=== PATIENT | female | born 1960 | race Hispanic/Latino ===

== ENCOUNTER 2016-12-29 10:00 | Day surgery (SDC) | payer OTHER ==
[~2016-12-29] VITALS: Ht 154.9 cm; Wt 68.0 kg
[~2016-12-29 10:00] MED LIST: IBUP800T28 PO; MAGN250T29 PO
[2016-12-29] MEDS ORDERED: Sodium Chloride LOK Flush 10 mL Syringe IV PRN (10:05)
[2016-12-29] MEDS ORDERED: fentaNYL-PF 50 mCg/mL 2 mL Inj IVPUSH PRN (10:05)
[2016-12-29 10:25] VITALS: BP 124/78; PULSE 69; RESP 16; O2SAT 96
[2016-12-29] MEDS ORDERED: MILK1CAP3 PO (10:31)
[2016-12-29] MEDS ORDERED: CYAN1TAB42 PO (10:31)
[2016-12-29] MEDS ORDERED: MULT400C3 PO (10:31)
[2016-12-29] MEDS ORDERED: BACL10TA PO (10:31)
[2016-12-29] MEDS ORDERED: BLAC160C PO (10:31)
[2016-12-29] MEDS ORDERED: CANNABIS PO (10:31)
[2016-12-29] MEDS: 0.9% Sodium Chloride 1,000 ML IV PRN ×2 (10:37→11:22)
--- NOTE | 2016-12-29 11:51 | PCM.ENDCOL ---
Colonoscopy Date of Service: Dec 29, 2016 Physician Juan Salinas MD Pre Procedure Diagnosis: Screening Post Procedure Dx & Findings: Polyps hemorrhoids Procedure Colonoscopy Prep adequate Withdrawal 15 minutes PROCEDURE IN DETAIL: After unremarkable rectal examination the colonoscope was inserted patient's anal canal was advanced to cecum. Landmarks were identified including the ileocecal valve and appendiceal orifice. Scope was withdrawn systematically. In the cecum, there was a 2 mm polyp which was removed completely using cold snare. In the transverse colon, there were three 2 mm polyps which were all resected completely using cold snare. In the sigmoid colon there was a 1 mm polyp was removed completely using cold forceps. In the rectum retroflexion was done which showed hemorrhoids. Anal canal was inspected carefully on the way out and hemorrhoids noted. The mucosa of the cecum, ascending, transverse, descending, sigmoid, rectal mucosa lined with whitish, pink, smooth, glistening, normal-appearing mucosa, normal fine branching, underlying vascularity, normal haustra. The patient tolerated procedure and was transported to observation area. Impression Polyp 5 status post complete removal Hemorrhoids Recommendation Repeat colonoscopy 5 years Presedation Assessment Risks and Benefits Informed consent was obtained from the patient after all risks and benefits including but not limited to drug reaction, infection, pain, bleeding, perforation, as well as alternatives were discussed. Patient monitoring Continuous pulse oximetry, cardiac monitoring, blood pressure monitoring, IV access, and oxygen at 2L per nasal cannula. Periprocedural Fentanyl: Fentanyl 125mcg Incrementally Midazolam: Midazolam 6mg Incrementally Complications There were no periprocedural complications identified. Post Procedure Plan Post Procedure Recommendations 1. Restrict activities today. 2. Resume normal activities in the morning. 3. Resume medications. 4. Patient informed of normal post procedure side effects as bloating, drowsiness, blood streaking in the stool. 5. average risk CRCS. If colon polyps come back as: -Hyperplastic- can repeat colonoscopy in 10 years -Tubular adenoma- repeat colonoscopy in 5 years -Tubulovillous/villous adenoma- repeat colonoscopy in 3 years -If any dysplasia- return to clinic as soon as possible 6. Please don't hesitate to call me with any questions. Juan Salinas MD Dec 29, 2016 11:51
[2016-12-29 11:53] VITALS: BP 103/70; PULSE 55; RESP 16; O2SAT 96
[2016-12-29 12:03] VITALS: BP 97/56; PULSE 56; RESP 16; O2SAT 98
[2016-12-29 12:15] VITALS: BP 98/70; PULSE 58; RESP 16; O2SAT 98
[2016-12-29 12:19] VITALS: BP 113/71; PULSE 62; RESP 14; O2SAT 100
--- NOTE | 2017-01-01 14:07 | PATH ---
SURGICAL PATHOLOGY Attending Physician:Juan Salinas M.D. CASE STATUS: Signed Out PATIENT NAME: HALI GRESHAM PID: [id number] : 1960 DATE COLLECTED:12/29/2016 20:29 SPECIMEN: 1: Colon, Biopsy 2: Colon, Biopsy 3: Colon, Biopsy CLINICAL HISTORY: POLYPS 1). CECAL POLYP X1 2). TRANSVERSE POLYP X3 3). SIGMOID POLYP X1 FINAL DIAGNOSIS: 1.CECAL POLYP: TUBULAR ADENOMA. 2.TRANSVERSE POLYPS: TUBULAR ADENOMAS, 2 OF 2 FRAGMENTS. MULTIPLE MICROSCOPIC LEVELS EXAMINED. 3.SIGMOID POLYP: TUBULAR ADENOMA. ICD10 CODE D12.0 D12.3 D12.5 GROSS DESCRIPTION: Received are three formalin-filled containers, each labeled with the patient' s name. 1. Received in formalin, labeled with the patient' s name and "cecal polyp", is one fragment of landrum, soft tissue measuring 0.1 x 0.1 x 0.1 cm. The fragment is totally submitted in cassette 1A. 2. Received in formalin, labeled with the patient' s name and "transverse polyps", are four fragments of landrum, soft tissue ranging in size from 0.1 x 0.1 x 0.1 cm to 0.2 x 0.1 x 0.1 cm. All fragments are totally submitted in cassette 2A. 3. Received in formalin, labeled with the patient' s name and "sigmoid polyp", is one fragment of landrum, soft tissue measuring 0.2 x 0.1 x 0.1 cm. The fragment is totally submitted in cassette 3A. ([id number]) MICRO DESCRIPTION: See diagnosis. ICD-9 CODES: CPT CODES: 1: 19716 2: 08103 3: 14636 Electronically Signed Out Denisse Sims MD [facility] [address], [place] [address] Technical component performed at [facility], [address], [place], [address]
== END 2016-12-29 23:59 | disposition home or self-care (01) ==
LOC: END 10:00
PROVIDERS: ATTEND Internal Medicine
DX: Z12.11 Encounter for screening for malignant neoplasm of colon (principal); D12.0 Benign neoplasm of cecum; D12.5 Benign neoplasm of sigmoid colon; D12.3 Benign neoplasm of transverse colon; K64.9 Unspecified hemorrhoids
CPT/HCPCS: 45380; 45385; 99153; G0500; J2250; J3010; J7030